=== PATIENT | female | born 1955 | race Caucasian/White ===

== ENCOUNTER 2018-03-28 18:15 | Inpatient (IN) | payer SELFPAY ==
[2018-03-28] MEDS ORDERED: Ondansetron HCl/PF 4 MG/2 ML Vial IVP PRN (21:01)
[2018-03-28] MEDS ORDERED: Acetaminophen 325 MG TAB PO PRN (21:01)
[2018-03-28] MEDS ORDERED: Ondansetron ODT 4 MG TAB SL PRN (21:01)
[2018-03-28 21:55] VITALS: BMI 32.7
[2018-03-28] MEDS: Sodium Chloride 0.9% 1,000 ML IV SCH (23:06)
[2018-03-29] MEDS: Sodium Chloride 0.9% 1,000 ML IV SCH ×4 (02:54→14:59)
[2018-03-29] MEDS ORDERED: RENALLY ADJUST ANTIBIOTICS IVPB PRN (05:01)
[2018-03-29] MEDS ORDERED: Acetaminophen 325 MG TAB PO PRN (05:02)
[2018-03-29] MEDS ORDERED: Senokot 8.6 MG TAB PO PRN (05:02)
[2018-03-29] MEDS ORDERED: Ondansetron HCl/PF 4 MG/2 ML Vial IVP PRN (05:02)
[2018-03-29] MEDS ORDERED: Calcium Carbonate 500 MG ChewTAB PO PRN (05:02)
[2018-03-29] MEDS: MEROPENEM 1 GM/50 ML 1 GM in Premix Bag 1 BAG IVPB SCH ×2 (05:36→17:08)
--- NOTE | 2018-03-29 05:41 | HP ---
DATE OF ADMISSION: 03/28/2018 The patient was seen and examined on 03/28/2018. PRIMARY CARE PHYSICIAN: Dr. Mata. CHIEF COMPLAINT: Fever with nausea, vomiting of 2 days' duration. HISTORY OF PRESENT ILLNESS: Patient is a 62-year-old female with congenital unilateral renal agenesi s, presented to the emergency room at [facility] with above complaints. Over the last two days, patient has generalized fatigue, malaise along with nausea, vomiting. She wa s unable to keep any food down. The vomitus contained food which she had eaten. She also had chills . She did not record her temperature. She denies any dysuria, hematuria, urgency, or frequency. Sh e has some discomfort in the left flank. No cough, shortness of breath, wheezing, sick contacts, rec ent travel reported. PAST MEDICAL HISTORY: 1. Congenital renal agenesis. The patient only has left kidney. 2. Hypertension, diet controlled. PAST SURGICAL HISTORY: 1. Cholecystectomy in 2001. 2. Hysterectomy in 1997. ALLERGIES: Patient is allergic to SULFA. CURRENT HOME MEDICATIONS: Reviewed with the patient and none. SOCIAL HISTORY: Patient currently lives at home. No smoking, alcohol, or drug use. She is FULL COD E. FAMILY HISTORY: Mother with Alzheimer dementia. Father with heart problems. Hypertension in nadeem l family members. REVIEW OF SYSTEMS: The following complete review of systems was negative, unless otherwise mentioned in the HPI or below: Constitutional: Weight loss or gain, ability to conduct usual activities. Sk in: Rash, itching. Eyes: Double vision, pain. ENT/Mouth: Nose bleeding, neck stiffness, pain, te nderness. Cardiovascular: Palpitations, dyspnea on exertion, orthopnea. Respiratory: Shortness of breath, wheezing, cough, hemoptysis, fever or night sweats. Gastrointestinal: Poor appetite, abdom inal pain, heartburn, nausea, vomiting, constipation, or diarrhea. Genitourinary: Urgency, frequenc y, dysuria, nocturia. Musculoskeletal: Pain, swelling. Neurologic/Psychiatric: Anxiety, depressio n. Allergy/Immunologic: Skin rash, bleeding tendency. PHYSICAL EXAMINATION: VITAL SIGNS: On ER arrival, temperature 102, respirations 20, pulse rate of 115, blood pressure 131/ 73 with O2 saturation 94% on room air. GENERAL: A 62-year-old female with generalized weakness and fatigue. HEENT: Head atraumatic, normocephalic. Sclerae are anicteric. Moist mucous membrane. No oral lesi on. NECK: Supple. No JVD appreciated. No carotid bruit. LUNGS: Clear to auscultation bilaterally with diminished air entry at bases. No wheezing or rhonchi . HEART: S1, S2 present. Regular, tachycardic. No rubs or gallops. ABDOMEN: Soft, tenderness over the left flank. No rebound, guarding, no costovertebral angle tender ness. EXTREMITIES: No edema or calf tenderness. NEUROLOGIC: Grossly nonfocal. Moves all four extremities. PSYCHIATRY: Alert, awake, oriented x3. SKIN: Warm and dry. LYMPH NODES: No palpable lymph nodes in the neck. PERIPHERAL VASCULAR: Radial pulses palpable bilaterally. MUSCULOSKELETAL: No joint swelling or tenderness. Medication administered in the emergency room, 400 mg IV Cipro, 4.5 mg Zosyn, IV fluids and ibuprofen . LABORATORY AND DIAGNOSTIC DATA: CBC showed WBC 15.4 with hemoglobin 14, hematocrit 40, platelet coun t of 163. Chemistries showed sodium 142, potassium 3.5, chloride 105, bicarb 20, BUN of 21, creatini ne 1.36, total bilirubin 1.45 with lactic acid 3.4. Repeat lactic acid 1.8. Urinalysis showed great er than 50 wbc's with 3+ bacteria. Influenza testing was negative. CT scan of the abdomen and pelvi s by my review showed suspected left pyelitis or ureteritis. IMPRESSION AND PLAN: 1. Sepsis with acute organ dysfunction secondary to urinary tract infection. CT abdomen showed left -sided pyelitis or ureteritis. Patient will be monitored on the telemetry unit. We will continue em [facility] antibiotics. Consult Urology and Infectious Disease. Await blood and urine cultures. 2. Lactic acidosis secondary to sepsis. 3. Acute kidney injury, probably secondary to sepsis. 4. Abnormal liver function tests, probably secondary to sepsis. 5. History of right kidney atrophy. 6. Diverticulosis. 7. SULFA allergy. Plan of care was discussed with the patient in detail. She stated understanding.
[2018-03-29 08:11] LABS: Hemoglobin 12.6 g/dL (12.0-16.0); Mean Corpuscular HGB CONC 33.4 g/dL (32.0-36.0); Mean Corpuscular Hemoglobin 30.4 pg (27.0-31.0); Mean Corpuscular Volume 91.1 fl (81.0-99.0); Mean Platelet Volume 9.2 fL (7.4-10.4); Platelet Count 127 thou/uL (130-400); RBC Distribution Width 12.6 % (11.5-14.5); Red Blood Cell (RBC) Count 4.14 mill/uL (4.20-5.40); White Blood Cell (WBC) Count 15.5 thou/uL (4.8-10.8)
[2018-03-29 09:00] LABS: Band 25 % (5-11); Lymphocytes 8 % (21-51); MDiff Complete? YES; Monocytes 3 % (0-10); Neutrophil 64 % (42-75); PLT Morphology Comment Appears Decreased; RBC Morphology Normal; Reflex for Review?? NO; Vacuoles MODERATE
[2018-03-29 09:43] LABS: Chloride 113 mmol/L (98-107)
[2018-03-29 09:44] LABS: Calcium 7.9 mg/dL (7.8-10.44); Magnesium 1.6 mg/dL (1.6-2.6); Potassium 3.4 mmol/L (3.5-5.1); Sodium 141 mmol/L (136-145)
[2018-03-29 09:45] LABS: Glucose 103 mg/dL (80-115)
[2018-03-29 09:46] LABS: Anion Gap 10 mmol/L (10-20); Carbon Dioxide 21 mmol/L (23-31)
[2018-03-29 09:48] LABS: Calc. Creatinine Clearance 72 mL/min (70-130); Estimated GFR-MDRD 55
[2018-03-29 09:49] LABS: BUN (Urea Nitrogen) 16 mg/dL (9.8-20.1)
[2018-03-29] MEDS: Ondansetron ODT 4 MG TAB PO PRN ×2 (11:44→17:08)
--- NOTE | 2018-03-29 13:22 | PDOC.PN ---
- Subjective Encounter Start Date: 03/29/18 Encounter Start Time: 11:20 -: old records requested/rev Pt seen and examined, chart reviewe din its entirety. This is my first visit with this patient. follow up for Left kidney E coli pyelonephritis with severe sepsis and ec william bacteremia. pt started on Meropenem on admit.l BCX x 2 form ROCHELLE positive, one identified as e coli, other as GNR. Pt afebrile here. no nausea, no Chills or sigors, no D/C. tolerating IV Meropenem. All systems reviewed and neg x as above - Objective Resuscitation Status: Resuscitation Status FULL:Full Resuscitation MAR Reviewed: Yes Vital Signs & Weight: Vital Signs (12 hours) Temp Pulse Resp BP BP Pulse Ox 03/29/18 11:47 97.8 F 82 16 152/70 H 100 03/29/18 09:00 97.9 F 80 16 100 03/29/18 07:35 97.9 F 80 16 130/68 100 03/29/18 04:00 97.9 F 77 16 106/55 L 95 Weight Weight 181 lb 10.574 oz I&O: 03/28/18 03/29/18 03/30/18 06:59 06:59 06:59 Intake Total 1780 Output Total 680 Balance 1100 Result Diagrams: 03/29/18 07:56 03/29/18 08:53 Radiology Reviewed by me: Yes EKG Reviewed by me: Yes Phys Exam - Physical Examination Constitutional: NAD HEENT: PERRLA, moist MMs, sclera anicteric, oral pharynx no lesions Neck: no nodes, no JVD, supple, full ROM Respiratory: no wheezing, no rales, no rhonchi, clear to auscultation bilateral Cardiovascular: RRR, no significant murmur, no rub Gastrointestinal: soft, non-tender, no distention, positive bowel sounds Musculoskeletal: no edema, pulses present Neurological: non-focal, normal sensation, moves all 4 limbs Lymphatic: no nodes Psychiatric: normal affect, A&O x 3 Skin: no rash, normal turgor, cap refill <2 seconds Dx/Plan (1) Severe sepsis Code(s): A41.9 - SEPSIS, UNSPECIFIED ORGANISM; R65.20 - SEVERE SEPSIS WITHOUT SEPTIC SHOCK Status: Acute Comment: secondary to E coli UTI, pyelonephritis and bacteremia, present on admit. On Merrem, streamline tomorrow when cx results available. Sepsis resolving, Lactic acid now normal, WBC stable, afebrile, HR down, Christy resolved (2) Pyelonephritis due to Escherichia coli Code(s): N12 - TUBULO-INTERSTITIAL NEPHRITIS, NOT SPCF ACUTE OR CHRONIC; B96.20 - UNSP ESCHERICHIA COLI THE CAUSE OF DISEASES CLASSD ELSWHR Status: Acute (3) E. coli bacteremia Code(s): R78.81 - BACTEREMIA Status: Acute (4) Renal agenesis, unilateral Code(s): Q60.0 - RENAL AGENESIS, UNILATERAL Status: Chronic Comment: no right kidney (5) CHRISTY (acute kidney injury) Code(s): N17.9 - ACUTE KIDNEY FAILURE, UNSPECIFIED Status: Resolved Comment : Cr down to 1 today form 1.4 (6) Hypokalemia Code(s): E87.6 - HYPOKALEMIA Status: Acute Comment: 3.4, watch, repeat in AM with Mg++ - Plan cont current plan of care, plan discussed w/ family, continue antibiotics, out of bed/ambulate, DVT proph w/lovenox * .
[2018-03-29] MEDS ORDERED: Enoxaparin Sodium 30 MG/0.3 ML SYRINGE SC SCH (21:00)
[2018-03-29] MEDS: Enoxaparin Sodium 40 MG/0.4 ML SYRINGE SC SCH (21:09)
[2018-03-30 05:07] LABS: #Basophils 0.1 thou/uL (0.0-0.2); #Eosinphils 0.1 thou/uL (0.0-0.7); #Lymphocytes 1.3 thou/uL (1.20-3.40); #Monocytes 0.9 thou/uL (0.11-0.59); #Neutrophils 10.1 thou/uL (1.40-6.50); %Basophils 0.6 % (0.0-1.0); %Eosinophils 0.5 % (0.0-10.0); %Lymphocytes 10.8 % (21.0-51.0); %Neutrophils 81.1 % (42.0-75.0); Hemoglobin 12.9 g/dL (12.0-16.0); Mean Corpuscular HGB CONC 33.2 g/dL (32.0-36.0); Mean Corpuscular Volume 93.5 fl (81.0-99.0); Mean Platelet Volume 10.4 fL (7.4-10.4); Platelet Count 105 thou/uL (130-400); RBC Distribution Width 12.5 % (11.5-14.5); Red Blood Cell (RBC) Count 4.17 mill/uL (4.20-5.40); White Blood Cell (WBC) Count 12.4 thou/uL (4.8-10.8)
[2018-03-30 05:23] LABS: ALT (SGPT) 19 U/L (8-55); AST (SGOT) 26 U/L (5-34); Albumin 3.1 g/dL (3.4-4.8); Alkaline Phosphatase 128 U/L (40-150); Anion Gap 13 mmol/L (10-20); BUN (Urea Nitrogen) 13 mg/dL (9.8-20.1); Bilirubin, Total 0.5 mg/dL (0.2-1.2); Calc. Creatinine Clearance 79 mL/min (70-130); Calcium 8.2 mg/dL (7.8-10.44); Carbon Dioxide 15 mmol/L (23-31); Chloride 114 mmol/L (98-107); Estimated GFR-MDRD 61; Globulin 3.2 g/dL (2.4-3.5); Glucose 88 mg/dL (80-115); Potassium 3.7 mmol/L (3.5-5.1); Protein, Total 6.3 g/dL (6.0-8.3); Sodium 138 mmol/L (136-145)
--- NOTE | 2018-03-30 05:33 | CON ---
DATE OF HOSPITAL ADMISSION: 03/28/2018 DATE OF CONSULTATION REQUESTING REPORT: 03/29/2018 REASON FOR CONSULTATION: 1. Concerning for left-sided pyelitis. 2. Congenital atrophic right kidney. 3. History of recurrent right pyelonephritis as a child. 4. Protracted nausea and lower abdominal pain. HISTORY OF PRESENT ILLNESS: Ms. 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 She apparently underwent previou s urologic evaluation such as a child, but cannot remember much other than she had right-sided pyelon ephritis episodes in her teen years, affecting her right kidney. She reports the current episode began on early a.m. hours of Tuesday morning, 03/27/2018. The patient developed lower abdominal symptoms consistent with a urinary tract infection. She will be ultimatel y attended the [facility] where a CT scan of the abdomen and pelvis was perfor med on 03/28/2018. The patient's CT scan of the abdomen and pelvis performed at that time demonstrat ed the congenital anomaly and compensatory hypertrophy of the patient's left kidney. The report for the radiologic studies suggest the patient having some degree of stranding about the left kidney; how ever, my review of the film finds relatively little stranding. I also do not notice any significant degree of sectoring of the left kidney. The patient's ureter is not overly distended, although it is clearly identifiable all the way to the patient's bladder, suggesting a possible small degree of hyd roureter. The contralateral atrophic right kidney does not show significant stranding about it, but is very, very small on the order of about 2 cm in size. There does not appear to be any significant hydroureter on the right side. The patient did have cultures obtained which show the patient having E. coli in her urine in the [facility] and E. coli was cultured from the patient's blood x2 according to [employer] probe bk t. The patient reports her urine culture obtained on 03/28/2018 was a voided specimen not a catheter ized specimen. At admission, the patient did not have a fever here. The patient has only been suffering from nausea by her report. She reports that she did have some left lower quadrant abdominal pain that specifica lly denies back pain on either side. She is mostly bothered by actual nausea which is associated wit h eating. PAST MEDICAL HISTORY: 1. Congenital right renal agenesis. 2. History of right-sided pyelonephritis episodes as a child. 3. Hypertension, controlled with medical therapy. PAST SURGICAL HISTORY: 1. Cholecystectomy in 2001. 2. Hysterectomy with bilateral salpingo-oophorectomy in 1995. ALLERGIES: The patient is allergic to SULFA. HOME MEDICATIONS: The patient reports being on any antihypertensive medication at home. SOCIAL HISTORY: The patient is employed in a title office doing office work. She specifically denie s any history of cigarette smoking. She rarely if ever consumes any alcohol and does not use drugs. FAMILY MEDICAL HISTORY: The patient's mother is at age 74 of Alzheimer's dementia. Her mot her also had diabetes mellitus at an advanced age. The patient's mother also suffered from hypertens ion. The patient's father had coronary artery disease and at age 70 during a surgical operat ion apparently on his heart. GYNECOLOGIC HISTORY: The patient is a 1, para 0. She had a miscarriage. REVIEW OF SYSTEMS: Constitutional: The patient reports severe illness symptoms at home. Gastrointe stinal: patient does not report diarrhea. She does report significant nausea and early satiety. Sh e does not report blood per rectum. The patient does not report any significant lateralizing symptom s in the abdomen. Pulmonary: Negative. Cardiac: nocturia. Musculoskeletal: Negative. Genitouri nary: The patient reports that she has had frequent small volume voids in the past. She reports no recent urinary tract infections other than the current episode. The patient does have subjective sen sation of incomplete bladder emptying, but usually waits on the toilet until her bladder is emptied b y her report. She does have some degree of straining to void. Review of systems otherwise negative x12 systems. PHYSICAL EXAMINATION: VITAL SIGNS: Pulse 99, temperature is 97.9, respirations 16, and blood pressure is 106/55. GENERAL: This is a pleasant, heavy set white female in no apparent distress. She has a GCS of 15. She is alert, oriented, and appropriate. HEAD, EYES, EARS, NOSE, AND THROAT: Extraocular movements are intact. Sclerae are anicteric. Oroph arynx is clear. NECK: Supple. LUNGS: Clear to auscultation bilaterally. CARDIOVASCULAR: There is a regular rate and rhythm. Review of her 24-hour quality assurance monitor final shows she has occasional PVCs and did have tachycardia at admission. ABDOMEN: Soft and nontender. The patient has had previous cholecystectomy, also a hysterectomy perf ormed. Percussion reveals minimal tenderness in the midline associated with an anticoagulation shot the patient has received. Palpation reveals no palpable masses. The patient reports her abdominal p ain symptoms were minimally off prior to admission in the lower quadrant on the left. BACK: There are no lateralizing symptoms on percussion of the patient's costovertebral angles. Ther e is no midline tenderness. There is no bony deformity noted. PELVIC: Deferred to the office. EXTREMITIES: Appear within normal limits. No clubbing, cyanosis or edema. The patient reports no previous problems associated with diabetes mellitus or other symptoms that wou ld suggest the patient has a diabetic type presentation. LABORATORY STUDIES: The patient's admission white count on 03/29/2018 [place] [id number], there were 25% bands present with 64% neutrophils in addition to the bands. The serum chemistry show s the patient's blood urea nitrogen today at 16 with a creatinine of 1.02. MICROBIOLOGY LABORATORY: The patient's voided urine specimen showed gram-negative reyes present on 06/2018. A blood culture underwent VERIGENE assessment and the patient had a positive E. coli x2 on 03/28/2018. RADIOLOGIC STUDIES: A CT scan of the abdomen and pelvis that was reviewed as noted above. This show s the patient having atrophic right kidney also has a left kidney which is reported as having perinep hric stranding and periureteral stranding involving the left renal collecting system suggesting some degree of left ureteritis and/or pyelitis. I reviewed the studies and find a degree of straining to be relatively minimal. The patient does not have any sectoring evident on the contrast study suggest ing that she does not have pyelonephritis. There is evidence of a fatty liver, status post cholecyst ectomy and hysterectomy. The patient does have colonic diverticulosis as well. ASSESSMENT AND PLAN: 1. Congenital atrophic right kidney with compensatory enlargement of the patient's left kidney. Thi s event occurred prepubertal based on the review of the studies and based on the patient's oral repor t the atrophic presentation was at . 2. History of right-sided recurrent pyelonephritis. The patient may well have a refluxing ureter on the right. This apparently never underwent reimplant or previous surgical intervention. The curren t presentation may be related to reflux of the right ureter which apparently has occurred in the past . The left ureter is not well characterized. The CT scan study shows that there is urine in the pat danny's left ureter from the kidney all the way down to the bladder suggesting either a full ureter or vesicoureteral reflux. This could occur on either side and contribute to the patient's findings of an apparent bladder infection resulted in systemic illness. The patient should undergo a voiding cys tourethrogram as an outpatient after her current infection is resolved. We will perform this from inic. 3. Cystoscopic assessment to be valuable in this patient as well. 4. Postmenopausal status not on hormonal replacement therapy. The patient underwent a hysterectomy with bilateral salpingo-oophorectomy in 1995, reports that she was on hormone replacement therapy for about 9 years with no urinary tract infections. This is a first urinary tract infection since her h ysterectomy. She reports not being on hormone replacement therapy of any sort. Discussed with the p atient that the urinary tract infections are common in this situation and topical estrogen products m ay be helpful and preventing urinary tract infection. 5. History of possible incomplete bladder emptying, this will be assessed in clinic by postvoid resi dual assessment. 6. Urinary tract infection and systemic illness. The patient should be treated with antibiotics aft er sensitivities are known. She may be discharged home on oral or IV antibiotics if required. She m ay follow up in my office for further evaluation and assessment. Total evaluation assessment time for this initial and hospital consultation over 70 minutes.
[2018-03-30] MEDS: Sodium Chloride 0.9% 1,000 ML IV SCH (05:46)
[2018-03-30] MEDS: MEROPENEM 1 GM/50 ML 1 GM in Premix Bag 1 BAG IVPB SCH (05:46)
--- NOTE | 2018-03-30 10:51 | PDOC.PN ---
- Subjective Encounter Start Date: 03/30/18 Encounter Start Time: 09:10 Pt feeling better, no nasuea today, a little last night, amairani po fine, no f/c, Tmax 99.8. No chills or rigors, no flank pain, urinating well. Pt tolerating abx, updated to plan Ucx with E coli, resistant to bactrim and amp. intermediate to Amp/sulb all systems reviewed and neg except as above - Objective Resuscitation Status: Resuscitation Status FULL:Full Resuscitation MAR Reviewed: Yes Vital Signs & Weight: Vital Signs (12 hours) Temp Pulse Resp BP Pulse Ox 03/30/18 08:00 98.1 F 85 16 91 L 03/30/18 07:30 98.1 F 85 16 165/83 H 91 L 03/30/18 03:58 99.5 F 94 21 H 161/75 H 95 Weight Weight 181 lb 10.574 oz I&O: 03/29/18 03/30/18 03/31/18 06:59 06:59 06:59 Intake Total 1780 Output Total 680 Balance 1100 Result Diagrams: 03/30/18 03:47 03/30/18 03:47 Phys Exam - Physical Examination Constitutional: NAD HEENT: PERRLA, moist MMs, sclera anicteric, oral pharynx no lesions Neck: no nodes, no JVD, supple, full ROM Respiratory: no wheezing, no rales, no rhonchi, clear to auscultation bilateral Cardiovascular: RRR, no significant murmur, no rub Gastrointestinal: soft, non-tender, no distention, positive bowel sounds Musculoskeletal: no edema, pulses present Neurological: non-focal, normal sensation, moves all 4 limbs Lymphatic: no nodes Psychiatric: normal affect, A&O x 3 Skin: no rash, normal turgor, cap refill <2 seconds Dx/Plan (1) Severe sepsis Code(s): A41.9 - SEPSIS, UNSPECIFIED ORGANISM; R65.20 - SEVERE SEPSIS WITHOUT SEPTIC SHOCK Status: Acute Comment: secondary to E coli UTI, pyelonephritis and bacteremia, present on admit. On Merrem, streamline to Levofloxacin. Sepsis resolving, Lactic acid now normal, WBC improving daily, afebrile, HR down , Sathya resolved (2) Pyelonephritis due to Escherichia coli Code(s): N12 - TUBULO-INTERSTITIAL NEPHRITIS, NOT SPCF ACUTE OR CHRONIC; B96.20 - UNSP ESCHERICHIA COLI THE CAUSE OF DISEASES CLASSD ELSWHR Status: Acute Comment: E coli on BCx and urine culture (3) E. coli bacteremia Code(s): R78.81 - BACTEREMIA Status: Acute (4) Renal agenesis, unilateral Code(s): Q60.0 - RENAL AGENESIS, UNILATERAL Status: Chronic Comment: no right kidney (5) SATHYA (acute kidney injury) Code(s): N17.9 - ACUTE KIDNEY FAILURE, UNSPECIFIED Status: Resolved Comment : Cr down to 0.93 today form 1.4 (6) Hypokalemia Code(s): E87.6 - HYPOKALEMIA Status: Acute Comment: 3.7, stable - Plan cont current plan of care, plan discussed w/ family, continue antibiotics, out of bed/ambulate * .
[2018-03-30] MEDS: Ondansetron ODT 4 MG TAB PO PRN ×2 (11:19→17:49)
[2018-03-30] MEDS: Enoxaparin Sodium 40 MG/0.4 ML SYRINGE SC SCH (20:59)
[2018-03-31 07:31] VITALS: BP 173/97
[2018-03-31 08:54] VITALS: TEMP 98.2
[2018-03-31] MEDS ORDERED: Amlodipine 5 MG TAB PO SCH (09:00)
[2018-03-31] MEDS ORDERED: Bisoprolol Fumarate/HCTZ 5 mg/6.25 mg Tablet PO SCH (09:00)
--- NOTE | 2018-03-31 17:47 | DIS ---
DATE OF ADMISSION: 03/28/2018 DATE OF DISCHARGE: 03/31/2018 PRIMARY CARE PHYSICIAN: Heidi Mata M.D. DISCHARGE DIAGNOSES: 1. Acute pyelonephritis with Escherichia coli. 2. Escherichia coli bacteremia. 3. Complicated Escherichia coli urinary tract infection with sepsis. 4. Acute kidney injury, resolved. 5. Essential hypertension. 6. Congenital single kidney. CONSULTATIONS: Dr. Vicente Garay. PROCEDURES: None. HISTORY AND PHYSICAL: Ms. Fontanez is a 62-year-old female with history of congenital agenesis of one o f her kidneys who presented with flank pain, fevers, chills, and urinary tract infection. She was diagnosed with a urinary tract infection, started meropenem and we were called for admission. HOSPITAL COURSE: The patient was seen and examined by Dr. Bobo and continued on meropenem and place d in inpatient. I took over the following morning. The patient was doing well, but was still feeling very weak and somewhat nauseated. One of her blood cultures growing gram negative reyes and so we subsequently continued on meropenem pending susceptibil ities. Medically, she was improved and she was stable for transfer to medical floor. From 03/29/2018 to 03/30/2018, she remained afebrile, T-max was 99.8. Blood culture x2 positive for E. coli and urine culture positive for E. coli as well. She was still somewhat a little nauseated, b ut not throwing up anymore. White count continued to normalize. She was feeling better. By 03/31/2018, on the day of discharge, the patient was feeling back to normal. She had no further n ausea and no fevers, was tolerating the antibiotics and was stable for discharge with outpatient foll owup. Repeat blood cultures were obtained prior to discharge. PHYSICAL EXAMINATION: Patient was seen and examined on the day of discharge. Discharge plan and disposition was discussed with the patient face to face at the bedside. DISCHARGE MEDICATIONS: 1. Levofloxacin 750 mg p.o. daily for 12 more days. 2. Zofran 4 mg p.o. q.4-6 hours p.r.n. nausea. New prescription sent. 3. Bisoprolol/hydrochlorothiazide 5/6.25 one p.o. daily. 4. Amlodipine 2.5 mg p.o. daily. FOLLOWUP APPOINTMENTS: 1. Primary care physician, Dr. Mata within a week. 2. Dr. Vicente Garay in 2-3 weeks for urologic followup. DISCHARGE ACTIVITY: As tolerated. DISCHARGE DIET: Heart healthy recommended. DISCHARGE CONDITION: Stable. DISPOSITION: Discharged home via private vehicle.
== END 2018-03-31 10:43 | disposition home or self-care (01) | DRG 872 ==
LOC: ERS 18:15 → 2NO 19:20 → T4-B 03-30 10:19
PROVIDERS: ADMIT Emergency Medicine; ATTEND Emergency Medicine
DX: A41.51 Sepsis due to Escherichia coli [E. coli] (principal); Q60.0 Renal agenesis, unilateral; E87.2 Acidosis; N10 Acute pyelonephritis; N17.9 Acute kidney failure, unspecified; R65.20 Severe sepsis without septic shock; I10 Essential (primary) hypertension; K57.90 Diverticulosis of intestine, part unspecified, without perforation or abscess without bleeding
CPT/HCPCS: 36415; 80048; 80053; 83605; 83735; 85025; 87040; 96360; 96361; A4216; J1650; J1956; J2185; Q0162